=== PATIENT | male | born 1985 | race Two or more races ===

== ENCOUNTER 2018-06-27 01:32 | Inpatient (IN) | payer OTHER ==
[~2018-06-27] VITALS: Ht 175.3 cm; Wt 108.4 kg
[2018-06-27 01:43] VITALS: Ht 175.3 cm; Wt 108.4 kg
[2018-06-27 02:42] LABS: BASOPHIL % 0.3 % (0-2); PLATELET COUNT 261 x10^3mcL (130-400); RED CELL DISTRIBUTION WIDTH 12.3 % (11.5-14.5)
[2018-06-27 02:48] LABS: CARBON DIOXIDE 27.3 mmol/L (21-32); CREATININE SERUM 1.5 mg/dL (0.7-1.3)
[2018-06-27 02:53] LABS: ALBUMIN 4.2 g/dL (3.4-5.0); BILIRUBIN TOTAL 0.22 mg/dL (0.20-1.00); TOTAL PROTEIN, SERUM 7.6 g/dL (6.4-8.2)
[2018-06-27 06:25] LABS: microscopic required? NO
[2018-06-27 07:41] LABS: urine erythrocyte NEGATIVE (NEGATIVE)
[2018-06-27 09:40] LABS: CHOLESTEROL/HDL RATIO 4.6; MAGNESIUM 2.4 mg/dL (1.8-2.4); PHOSPHOROUS 2.7 mg/dL (2.5-4.9)
[2018-06-27 10:27] LABS: AMPHETAMINE QUAL UR NONE DETECTED (See below)
[2018-06-27 11:46] VITALS: BP 120/55
[2018-06-27 16:46] VITALS: BP 104/44
[2018-06-27 19:35] VITALS: BP 105/42
[2018-06-28 05:48] VITALS: BP 100/57
[2018-06-28 06:44] LABS: BASOPHIL % 0.4 % (0-2); PLATELET COUNT 235 x10^3mcL (130-400); RED CELL DISTRIBUTION WIDTH 12.8 % (11.5-14.5)
[2018-06-28 06:45] LABS: CALCIUM 8.4 mg/dL (8.5-10.1); CARBON DIOXIDE 26.1 mmol/L (21-32); CHLORIDE SERUM 106 mmol/L (98-107); GFR1 > 60 mL/min; GLUCOSE SERUM 90 mg/dL (74-106); MAGNESIUM 2.2 mg/dL (1.8-2.4); PHOSPHOROUS 3.7 mg/dL (2.5-4.9); POTASSIUM SERUM 4.2 mmol/L (3.5-5.1); SODIUM SERUM 139 mmol/L (136-145)
[2018-06-28 09:01] VITALS: BP 105/50
[2018-06-28 12:16] VITALS: BP 116/68
[2018-06-28 16:31] VITALS: BP 132/76
[2018-06-28 20:56] VITALS: BP 118/64
[2018-06-29 05:22] VITALS: BP 100/50
[2018-06-29 06:28] LABS: CALCIUM 9.4 mg/dL (8.5-10.1); CARBON DIOXIDE 26.1 mmol/L (21-32); CHLORIDE SERUM 103 mmol/L (98-107); CREATININE SERUM 1.2 mg/dL (0.7-1.3); GFR1 > 60 mL/min; GLUCOSE SERUM 89 mg/dL (74-106); PHOSPHOROUS 4.4 mg/dL (2.5-4.9); POTASSIUM SERUM 4.1 mmol/L (3.5-5.1); SODIUM SERUM 136 mmol/L (136-145)
[2018-06-29 06:34] LABS: BASOPHIL % 0.4 % (0-2); PLATELET COUNT 255 x10^3mcL (130-400); RED CELL DISTRIBUTION WIDTH 12.3 % (11.5-14.5)
[2018-06-29 08:30] VITALS: BP 103/57
[2018-06-29 16:17] VITALS: BP 151/72
[2018-06-29 21:03] VITALS: BP 132/67
[2018-06-30 05:36] VITALS: BP 92/50
[2018-06-30 06:25] LABS: BASOPHIL % 0.1 % (0-2); PLATELET COUNT 240 x10^3mcL (130-400); RED CELL DISTRIBUTION WIDTH 12.3 % (11.5-14.5)
[2018-06-30 06:34] LABS: CALCIUM 8.7 mg/dL (8.5-10.1); CARBON DIOXIDE 29.7 mmol/L (21-32); CHLORIDE SERUM 104 mmol/L (98-107); CREATININE SERUM 1.1 mg/dL (0.7-1.3); GFR1 > 60 mL/min; GLUCOSE SERUM 105 mg/dL (74-106); MAGNESIUM 1.9 mg/dL (1.8-2.4); PHOSPHOROUS 4.5 mg/dL (2.5-4.9); SODIUM SERUM 141 mmol/L (136-145)
[2018-06-30 09:23] VITALS: BP 110/47
[2018-06-30] MEDS ORDERED: PERCOCET1 TAB PO (11:15)
[2018-06-30 11:41] VITALS: BP 110/47
== END 2018-06-30 13:40 | disposition home or self-care (01) | DRG 263 ==
LOC: ED 01:32 → MU 05:42
PROVIDERS: Emergency Medicine; Internal Medicine; Surgery; ADMIT Family Medicine
PROC: 0DJ08ZZ Inspection of Upper Intestinal Tract, Via Natural or Artificial Opening Endoscopic (ICD-10-PCS; 2018-06-28)
PROC: BF101ZZ Fluoroscopy of Bile Ducts using Low Osmolar Contrast (ICD-10-PCS; 2018-06-29)
PROC: 0FT44ZZ Resection of Gallbladder, Percutaneous Endoscopic Approach (ICD-10-PCS; principal; 2018-06-29 09:30)
DX: K85.10 Biliary acute pancreatitis without necrosis or infection (principal); N17.0 Acute kidney failure with tubular necrosis; K80.70 Calculus of gallbladder and bile duct without cholecystitis without obstruction; J45.909 Unspecified asthma, uncomplicated; K29.70 Gastritis, unspecified, without bleeding; E66.9 Obesity, unspecified; Z68.35 Body mass index [BMI] 35.0-35.9, adult
CPT/HCPCS: 43235; C1887; G0480; J0330; J0500; J0690; J1170; J1200; J1610; J2175; J2250; J2270; J2310; J2405; J3010; J3490; J7030; Q0092; Q9967

== ENCOUNTER 2018-08-14 11:22 | Inpatient (IN) | payer OTHER ==
[~2018-08-14] VITALS: Ht 175.3 cm; Wt 106.1 kg
[~2018-08-14 11:22] MED LIST: PERCOCET1 TAB PO
[2018-08-14 12:40] LABS: BASOPHIL % 0.2 % (0-2); PLATELET COUNT 280 x10^3mcL (130-400); RED CELL DISTRIBUTION WIDTH 12.6 % (11.5-14.5)
[2018-08-14 12:44] LABS: CALCIUM 9.9 mg/dL (8.5-10.1); CARBON DIOXIDE 24.4 mmol/L (21-32); CHLORIDE SERUM 102 mmol/L (98-107); CREATININE SERUM 1.1 mg/dL (0.7-1.3); GFR1 > 60 mL/min; GLUCOSE SERUM 127 mg/dL (74-106); POTASSIUM SERUM 3.8 mmol/L (3.5-5.1); SODIUM SERUM 141 mmol/L (136-145)
[2018-08-14 13:04] LABS: ALBUMIN 4.5 g/dL (3.4-5.0); ALKALINE PHOSPHATASE 202 U/L (46-116); AST/SGOT 458 U/L (15-37); BILIRUBIN TOTAL 5.96 mg/dL (0.20-1.00); LIPASE 51 IU/L (73-393); TOTAL PROTEIN, SERUM 8.1 g/dL (6.4-8.2)
[2018-08-14 13:05] LABS: ALT/SGPT 1211 U/L (16-63)
[2018-08-14 15:17] LABS: CHOLESTEROL/HDL RATIO 4.4; MAGNESIUM 2.2 mg/dL (1.8-2.4); PHOSPHOROUS 1.6 mg/dL (2.5-4.9)
[2018-08-14 15:21] LABS: FREE T4 1.41 ng/dL (0.76-1.46)
[2018-08-14 15:28] LABS: FREE THYROXINE INDEX 3.6 ug/dL (1.4-4.5); T4(THYROXINE) 9.7 ug/dL (4.7-13.3)
[2018-08-14 15:33] VITALS: BP 117/60
[2018-08-14 15:42] LABS: T3 TOTAL 0.93 ng/mL
[2018-08-14 15:47] VITALS: Ht 175.3 cm; Wt 106.1 kg
[2018-08-14 18:23] LABS: microscopic required? NO
[2018-08-14 18:30] LABS: urine erythrocyte NEGATIVE (NEGATIVE)
[2018-08-14 18:37] LABS: AMPHETAMINE QUAL UR NONE DETECTED (See below)
[2018-08-14 20:21] VITALS: BP 128/65
[2018-08-15 05:44] VITALS: BP 119/73
[2018-08-15 05:59] LABS: BASOPHIL % 0.3 % (0-2); PLATELET COUNT 256 x10^3mcL (130-400)
[2018-08-15 06:47] LABS: ALT/SGPT 788 U/L (16-63); AST/SGOT 171 U/L (15-37); BILIRUBIN DIRECT 5.28 mg/dL (0.0-0.2); CALCIUM 9.4 mg/dL (8.5-10.1); CARBON DIOXIDE 25.8 mmol/L (21-32); CHLORIDE SERUM 104 mmol/L (98-107); CREATININE SERUM 1.1 mg/dL (0.7-1.3); GFR1 > 60 mL/min; GLUCOSE SERUM 113 mg/dL (74-106); MAGNESIUM 2.2 mg/dL (1.8-2.4); PHOSPHOROUS 3.5 mg/dL (2.5-4.9); POTASSIUM SERUM 3.6 mmol/L (3.5-5.1); SODIUM SERUM 142 mmol/L (136-145)
[2018-08-15 07:05] LABS: ALKALINE PHOSPHATASE 197 U/L (46-116); BILIRUBIN TOTAL 6.31 mg/dL (0.20-1.00); TOTAL PROTEIN, SERUM 7.4 g/dL (6.4-8.2)
[2018-08-15 09:15] VITALS: BP 131/66
[2018-08-15 20:58] VITALS: BP 109/76
[2018-08-16 06:10] VITALS: BP 106/61
[2018-08-16 06:11] VITALS: BP 157/77
[2018-08-16 07:17] LABS: BASOPHIL % 0.3 % (0-2); PLATELET COUNT 226 x10^3mcL (130-400); RED CELL DISTRIBUTION WIDTH 12.8 % (11.5-14.5)
[2018-08-16 07:44] LABS: ALBUMIN 3.4 g/dL (3.4-5.0); ALKALINE PHOSPHATASE 157 U/L (46-116); ALT/SGPT 462 U/L (16-63); AST/SGOT 70 U/L (15-37); CALCIUM 8.7 mg/dL (8.5-10.1); CARBON DIOXIDE 26.4 mmol/L (21-32); CHLORIDE SERUM 106 mmol/L (98-107); GFR1 > 60 mL/min; GLUCOSE SERUM 97 mg/dL (74-106); POTASSIUM SERUM 3.8 mmol/L (3.5-5.1); SODIUM SERUM 141 mmol/L (136-145); TOTAL PROTEIN, SERUM 6.5 g/dL (6.4-8.2)
[2018-08-16 09:00] VITALS: BP 135/79
[2018-08-16] MEDS ORDERED: RIFADIN300 MG PO (12:43)
[2018-08-16 13:54] VITALS: BP 135/79
== END 2018-08-16 15:36 | disposition home or self-care (01) ==
LOC: ED 11:22 → MU 14:29
PROVIDERS: Emergency Medicine; Internal Medicine Gastroenterology; ADMIT Internal Medicine
PROC: 0FC98ZZ Extirpation of Matter from Common Bile Duct, Via Natural or Artificial Opening Endoscopic (ICD-10-PCS; principal; 2018-08-15 17:00)
PROC: BF101ZZ Fluoroscopy of Bile Ducts using Low Osmolar Contrast (ICD-10-PCS; 2018-08-15 17:00)
PROC: 0F798ZZ Dilation of Common Bile Duct, Via Natural or Artificial Opening Endoscopic (ICD-10-PCS; 2018-08-15 17:00)
DX: K80.50 Calculus of bile duct without cholangitis or cholecystitis without obstruction (principal); E66.9 Obesity, unspecified; R74.0 Nonspecific elevation of levels of transaminase and lactic acid dehydrogenase [LDH]; J45.909 Unspecified asthma, uncomplicated; Z68.34 Body mass index [BMI] 34.0-34.9, adult; Z90.49 Acquired absence of other specified parts of digestive tract; Z72.89 Other problems related to lifestyle
CPT/HCPCS: 43262; 84439; C1769; G0378; J0290; J1610; J1885; J2250; J2270; J2405; J2543; J2550; J2704; J3010; J7030; J7050; J7120; Q0092; Q0163; Q9967